=== PATIENT | male | born 1960 | race Caucasian/White ===

== ENCOUNTER 2021-01-25 15:49 | Emergency (ER) | payer BC ==
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
[2021-01-25] MEDS ORDERED: Diphtheria,Pertussis(Acell),Tetanus Vaccine 0.5 ML Syringe IM ONE (16:22)
[2021-01-25 16:54] LABS: ANION GAP 16.4 mmol/L (5-15); CHLORIDE,CL 105 mmol/L (98-107); SODIUM,NA 144 mmol/L (136-145)
[2021-01-25] MEDS ORDERED: Lidocaine 2% with EPINEPHrine 1:200,000 10 ML SDV INFILT ONE (17:08)
[2021-01-25] MEDS ORDERED: Bacitracin/Neomycin/Polymyxin B Oint 0.9 GM U/D Packet TOP ONE (17:09)
--- NOTE | 2021-01-25 17:10 | CT ---
[id number] CT/CT Head WO IV EXAM: NONCONTRAST HEAD CT INDICATION: TRAUMA. COMPARISON: None. DISCUSSION: 12 x 6 mm right thalamic and 25 x 8 mm right basal ganglia hyperdensities, favor mineralization over acute hemorrhage. Follow-up CT or brain MRI could provide further differentiation. Mild generalized atrophy. No mass effect, midline shift, hydrocephalus or acute territorial infarct. Layering fluid in both maxillary sinuses. IMPRESSION: 1. Hypodensities in the right thalamus and basal ganglia, favor parenchymal mineralization over acute hemorrhage. Palomo Willard MD 01/25/21 [id number] Thank you for allowing us to participate in the care of your patient.
--- NOTE | 2021-01-25 17:13 | CT ---
[id number] CT/CT Cervical Spine WO IV EXAM: NONCONTRAST CERVICAL SPINE CT INDICATION: TRAUMA. COMPARISON: None. DISCUSSION: The vertebral bodies are normal in height and alignment. No fracture or suspicious osseous lesion is identified. Moderate disc degeneration C5-C6 with milder changes at the remaining disc levels and mild to moderate scattered facet arthropathy. IMPRESSION: 1. No evidence of acute cervical spine trauma. Palomo Willard MD 01/25/21 [phone] Thank you for allowing us to participate in the care of your patient.
[2021-01-25] MEDS ORDERED: Cephalexin 250 MG Cap PO ONE (17:57)
== END 2021-01-25 18:15 | disposition home or self-care (01) ==
LOC: KA.ED 15:49
DX: S06.0X1A Concussion with loss of consciousness of 30 minutes or less, initial encounter (principal); S01.511A Laceration without foreign body of lip, initial encounter; I10 Essential (primary) hypertension; Z23 Encounter for immunization; Z88.5 Allergy status to narcotic agent; Z79.899 Other long term (current) drug therapy; W22.8XXA Striking against or struck by other objects, initial encounter; Y93.02 Activity, running
CPT/HCPCS: 12011; 36415; 70450; 72125; 80053; 85025; 90471; 90715; 99283; 99284-25; A9270-GY